=== PATIENT | male | born 1990 | race Asian ===

== ENCOUNTER 2020-06-02 11:53 | Emergency (ER) | payer OTHER ==
[~2020-06-02] VITALS: Ht 167.6 cm; Wt 65.8 kg
[2020-06-02 12:03] VITALS: BP 120/68
[2020-06-02 14:55] LABS: BASOPHILS # (AUTO) 0.1 K/uL (0.00-0.22); BASOPHILS % (AUTO) 1.2 % (0.0-2.0); EOSINOPHILS # (AUTO) 0.1 K/uL (0-0.4); EOSINOPHILS % (AUTO) 1.6 % (0.0-4.0); HEMATOCRIT 47.9 % (36-52); HEMOGLOBIN 16.1 g/dL (12.0-18.0); LYMPHOCYTES # (AUTO) 1.4 K/uL (2.0-11.5); LYMPHOCYTES % (AUTO) 19.6 % (20.5-51.1); MEAN CORPUSCULAR HEMOGLOBIN 29 pg (27-31); MEAN CORPUSCULAR HGB CONC 34 g/dL (33-37); MEAN CORPUSCULAR VOLUME 85.1 fL (80-94); MONOCYTES # (AUTO) 0.5 K/uL (0.8-1.0); MONOCYTES % (AUTO) 6.9 % (1.7-9.3); NEUTROPHILS % (AUTO) 70.7 % (42.2-75.2); PLATELET COUNT (AUTO) 261 K/uL (140-450); RED BLOOD CELL COUNT(AUTO) 5.63 MIL/uL (4.20-6.10); RED CELL DISTRIBUTION WIDTH 12.5 % (11.6-13.7)
[2020-06-02 15:07] LABS: ALBUMIN 4.6 g/dL (3.4-5.0); CARBON DIOXIDE 30.6 mmol/L (21-32); POTASSIUM 3.6 mmol/L (3.5-5.1); TOTAL BILIRUBIN 0.4 mg/dL (0.0-1.0)
[2020-06-02 20:05] VITALS: BP 120/68
--- NOTE | 2020-06-02 20:05 | NUR ---
Patient discharged with v/s stable. Written and verbal after care instructions given and explained. Patient alert, oriented and verbalized understanding of instructions. Ambulatory with steady gait. All questions addressed prior to discharge. ID band removed. Patient advised to follow up with PMD. Rx of DOLUTEGRAVIR 50 MG, TRUVADA given. Patient educated on indication of medication including possible reaction and side effects. Opportunity to ask questions provided and answered.
[2020-06-04 12:07] LABS: HEPATITIS B SURFACE ANTIGEN Negative (Negative)
== END 2020-06-02 20:05 | disposition home or self-care (01) ==
LOC: MED 11:53
DX: S69.81XA Other specified injuries of right wrist, hand and finger(s), initial encounter (principal); W46.1XXA Contact with contaminated hypodermic needle, initial encounter; Y93.89 Activity, other specified; Y92.89 Other specified places as the place of occurrence of the external cause; Y99.8 Other external cause status
CPT/HCPCS: 36415; 80053; 85025; 86592; 86702; 86803; 87340; 90471; 90715; 99284